=== PATIENT | female | born 1955 ===

== ENCOUNTER 2023-12-22 05:20 | Day surgery (SDC) | payer OTHER ==
[2023-12-15 13:46] LABS: ALBUMIN 4.2 gm/dL (3.4-5.0); BILIRUBIN TOTAL 0.41 mg/dL (0.3-1.2); CALCIUM 9.5 mg/dL (8.5-10.1); CREATININE SERUM 0.76 mg/dL (0.55-1.02); GFR 76.14; POTASSIUM 4.22 mEq/L (3.5-5.1); TOTAL PROTEIN 8.2 gm/dL (6.4-8.2)
[~2023-12-22 05:20] MED LIST: ABATINEX680 MG; AMLODIPINE-OLM1 EAC2; BUSPIRONE HCL7.5 MG; COZAAR100 MG; VOLTAREN ARTHRI20 GM
[2023-12-22] MEDS ORDERED: CEFTRIAXONE SODIUM 2,000 MG VIAL ONE (07:49)
[2023-12-22] MEDS ORDERED: METRONIDAZOLE/SODIUM CHLORIDE 500 MG/100 ML PIGGYBACK IV ONE ×2 (07:49→11:00)
[2023-12-22] MEDS ORDERED: POVIDONE-IODINE 118 ML BOTT TOP ONE (10:01)
[2023-12-22] MEDS ORDERED: DIBUCAINE 30 GM TUBE ONE (10:01)
[2023-12-22] MEDS ORDERED: HEMOSTATIC MATRIX 1 KIT KIT TOP ONE (10:02)
[2023-12-22] MEDS ORDERED: DIBUCAINE 30 GM TUBE RECTAL ONE (11:00)
[2023-12-22] MEDS ORDERED: HEMOSTATIC MATRIX WITH THROMBIN KIT TOP ONE (11:00)
[2023-12-22] MEDS ORDERED: CEFTRIAXONE SODIUM 2,000 MG VIAL IV ONE (11:00)
[2023-12-22] MEDS ORDERED: OXYC1TAB9 PO (11:28)
[2023-12-22] MEDS ORDERED: TAMSULOSIN HCL 0.4 MG CAP PO ONE ×2 (11:30→13:24)
[2023-12-26] MEDS ORDERED: POVIDONE-IODINE 118 ML BOTT TOP ONE (14:00)
== END 2023-12-22 15:00 | disposition home or self-care (01) ==
LOC: CIR.AMB 05:20
PROVIDERS: ATTEND Surgery
DX: K64.8 Other hemorrhoids (principal); K64.4 Residual hemorrhoidal skin tags; K62.5 Hemorrhage of anus and rectum